=== PATIENT | male | born 1990 | race Caucasian/White ===

== ENCOUNTER 2016-03-27 07:50 | Emergency (ER) | payer BC ==
[2016-03-27 08:08] VITALS: BMI 25.8
[2016-03-27] MEDS ORDERED: ONDANSETRON 4 MG/2 ML VIAL ONE (08:40)
[2016-03-27] MEDS ORDERED: SODIUM CHLORIDE 1,000 ML IV ONE (08:45)
[2016-03-27] MEDS ORDERED: ONDANSETRON 4 MG/2 ML VIAL IVPUSH ONE (08:46)
[2016-03-27] MEDS ORDERED: METOCLOPRAMIDE HCL INJECTION 10 MG/2 ML VIAL IVPB ONE (08:54)
[2016-03-27] MEDS ORDERED: KETOROLAC TROMETHAMINE 30 MG/1 ML VIAL IM ONE (08:55)
[2016-03-27 08:58] LABS: MCH 30.2 pg (25.7-33.7); MCHC 33.2 g/dl (32.0-35.9); MEAN PLT VOLUME 8.3 fl (7.5-11.1); PLATELET COUNT 471 K/MM3 (134-434); RDW 13.7 % (11.9-15.9); WHITE BLOOD COUNT 21.8 K/mm3 (4.0-10.0)
[2016-03-27] MEDS ORDERED: FAMOTIDINE 20 MG/50 ML IVPB 50 ML IVPB ONE ×2 (08:58→09:08)
[2016-03-27] MEDS ORDERED: MAG HYDROX/AL HYDROX/SIMETH 30 ML UNIT-DOSE CUP PO ONE (08:58)
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
[2016-03-27] MEDS ORDERED: KETOROLAC TROMETHAMINE 30 MG/1 ML VIAL ONE (09:07)
[2016-03-27] MEDS ORDERED: MAG HYDROX/AL HYDROX/SIMETH 30 ML UNIT-DOSE CUP ONE (09:07)
[2016-03-27] MEDS ORDERED: METOCLOPRAMIDE HCL INJECTION 10 MG/2 ML VIAL ONE (09:07)
[2016-03-27 09:43] LABS: AMYLASE 84 U/L (25-115); ANION GAP 9 (8-16); CALCIUM 9.6 mg/dL (8.5-10.1); CO2 28 mmol/L (21-32); CREATININE 1.1 mg/dL (0.7-1.3); GLUCOSE,RANDOM 107 mg/dL (74-106); SGOT/AST 26 U/L (15-37); SGPT/ALT 36 U/L (12-78)
[2016-03-27 09:45] LABS: ALK PHOS 110 U/L (45-117); BILIRUBIN,TOTAL 0.5 mg/dL (0.2-1.0)
[2016-03-27 10:39] LABS: URINE APPEARANCE CLEAR; URINE BILIRUBIN NEGATIVE (NEGATIVE); URINE BLOOD NEGATIVE (NEGATIVE); URINE COLOR DKYELLOW; URINE GLUCOSE (UA) NEGATIVE (NEGATIVE); URINE KETONE TRACE (NEGATIVE); URINE LEUK ESTERASE TRACE (NEGATIVE); URINE NITRITE NEGATIVE (NEGATIVE); URINE PROTEIN 1+ (NEGATIVE); URINE UROBILINOGEN 2.0 E.U/dl E.U./dl (0.2-1.0)
--- NOTE | 2016-03-27 10:40 | PDOC ---
[id number] 100 03/27/16 08:05 03/27/16 08:05 03/27/16 08:05 03/27/16 08:05 ED Treatment Course - LABORATORY CBC & Chemistry Diagram: 03/27/16 08:47 03/27/16 08:47 - ADDITIONAL ORDERS Additional order review: Laboratory Results 03/27/16 08:47 Sodium 139 Potassium 4.4 Chloride 102 Carbon Dioxide 28 Anion Gap 9 BUN 14 Creatinine 1.1 Creat Clearance w eGFR > 60 Random Glucose 107 H Calcium 9.6 Total Bilirubin 0.5 AST 26 ALT 36 Alkaline Phosphatase 110 Total Protein 8.0 Albumin 4.0 Total Amylase 84 Lipase 113 03/27/16 09:05 Group A Strep Rapid Antigen - Final Throat 03/27/16 09:05 Influenza Types A,B Antigen (PATY) - Final Nasopharyngeal Swab - Final 03/27/16 08:47 RBC 5.01 MCV 91.0 MCHC 33.2 RDW 13.7 MPV 8.3 Neutrophils % 85.0 H Lymphocytes % 4.0 L Monocytes % 3.0 L - Medications Given in the ED: ED Medications Discontinued Medications Generic Name Dose Route Start Last Admin Trade Name Freq PRN Reason Stop Dose Admin Al Hydroxide/Mg Hydroxide 30 ml 03/27/16 08:58 03/27/16 09:21 Mylanta Oral Suspension - PO 03/27/16 08:59 30 ml ONCE ONE Administration Sodium Chloride 1,000 mls @ 1,000 mls/hr 03/27/16 08:45 03/27/16 08:46 Normal Saline - IV 03/27/16 09:44 1,000 mls/hr ASDIR ONE Administration Famotidine/Sodium Chloride 50 mls @ 100 mls/hr 03/27/16 08:58 03/27/16 09:21 Pepcid 20 Mg Premixed Ivpb - IVPB 03/27/16 09:27 100 mls/hr ONCE ONE Administration Ketorolac Tromethamine 30 mg 03/27/16 08:55 03/27/16 09:21 Toradol Injection - IM 03/27/16 08:56 30 mg ONCE ONE Administration Metoclopramide HCl 10 mg 03/27/16 08:54 03/27/16 09:21 Reglan Injection - IVPB 03/27/16 08:55 10 mg ONCE ONE Administration Ondansetron HCl 4 mg 03/27/16 08:46 03/27/16 08:46 Zofran Injection IVPUSH 03/27/16 08:47 4 mg NOW ONE Administration Medical Decision Making - Medical Decision Making 03/27/16 10:39 Patient seen and evaluated with the nurse practitioner. I agree with the overall evaluation, assessment, and management with the following summary of visit: 25-year-old male presents with intractable nausea/vomiting/diarrhea/abdominal pain since last night, tachycardic on arrival with abdominal discomfort as noted. Leukocytosis of 22, chemistries otherwise normal including lipase. CTAP ordered, will follow-up and reassess and dispo accordingly *DC/Admit/Observation/Transfer Diagnosis at time of Disposition: Gastroenteritis - Discharge Dispostion Disposition: HOME Condition at time of disposition: Improved - Prescriptions Prescriptions: Acetaminophen [Tylenol] 650 mg PO Q6H #30 tablet Ondansetron HCl [Zofran] 4 mg PO Q8H #15 tablet - Patient Instructions Printed Discharge Instructions: DI for Viral Gastroenteritis -- Adult Additional Instructions: Maintain adequate hydration, for the remainder of your symptoms, maintain a bland diet such as bananas, rice, applesauce and toast. These foods can help make your stools firmer and also replete certainly essential electrolytes. Please follow up with your primary care physician as needed - Post Discharge Activity Work/School Note: Back to Work
[2016-03-27 10:41] LABS: URINE MUCUS MANY; URINE RBC 1 /hpf (0-3); URINE WBC 6 /hpf (3-5)
[2016-03-27 10:47] LABS: URINE MARIJUANA THC NEGATIVE ng/ml (CUTOFF=50)
[2016-03-27 13:24] VITALS: BP 122/75; PULSE 89; TEMP 98.1
== END 2016-03-27 13:25 | disposition home or self-care (01) ==
LOC: JER 07:50
PROC: 3E033GC Introduction of Other Therapeutic Substance into Peripheral Vein, Percutaneous Approach (ICD-10-PCS; principal; 2016-03-27)
PROC: 3E0233Z Introduction of Anti-inflammatory into Muscle, Percutaneous Approach (ICD-10-PCS; 2016-03-27)
PROC: 3E0337Z Introduction of Electrolytic and Water Balance Substance into Peripheral Vein, Percutaneous Approach (ICD-10-PCS; 2016-03-27)
DX: K52.9 Noninfective gastroenteritis and colitis, unspecified (principal); Z72.0 Tobacco use
CPT/HCPCS: 36415; 74177-TC; 80053; 80307; 81003; 81015; 82150; 83690; 85025; 87070; 87077; 87430; 87804; 99284-25